=== PATIENT | male | born 1945 | race Caucasian/White ===

== ENCOUNTER 2019-08-15 19:47 | Inpatient (IN) ==
[2019-08-15] MEDS ORDERED: SODIUM CHLORIDE 0.9% 1,000 ML IV STA (20:14)
[2019-08-15 20:34] LABS: Basophils % 0.1 % (0.0-0.8); Eosinophils % 0.4 % (0.00-10.9); Hematocrit 32.2 VOL% (42.0-52.0); Immature Granulocytes % 0.5 %; Immature Granulocytes Absolute 0.04 #; Lymphocytes # 0.4 10*3/uL (1.4-4.0); Lymphocytes % 5.4 % (21.2-54.2); Mean Corpuscular HGB Conc 34.2 GM/DL (32-36); Mean Corpuscular Volume 94.2 FL (87-102); Mean Platelet Volume 9.6 FL (9.6-12.0); Monocytes % 5.5 % (1.7-12.7); Neutrophils % 88.1 % (38.7-73.9); Platelet Count 127 T/CUMM (130-400); Red Blood Count 3.42 MC/CUMM (3.8-5.5); Red Cell Distribution Width 13.3 % (9.3-17.3); White Blood Count 7.7 T/CUMM (4-12)
[2019-08-15] MEDS ORDERED: CLINDAMYCIN INJ 600 MG in PREMIX 1 EACH IV STA (21:03)
[2019-08-15 21:13] LABS: Albumin 3.6 G/DL (3.4-5.0); Bilirubin,Total 0.6 MG/DL (0.2-1.0); Calcium 8.4 MG/DL (8.5-10.1); Osmolality,Calculated 267.4 MOS/KG (273-304); Total Protein 6.8 G/DL (6.4-8.3)
[2019-08-15] MEDS ORDERED: ACETAMINOPHEN 500 MG TABLET ONE (22:15)
[2019-08-15 22:23] LABS: Apearance,Urine CLEAR (Clear); Bilirubin,Urine Negative (Negative); Blood, Urine Small mg/dL (Negative); Glucose,Urine (UA) Negative (Negative); Ketones,Urine Negative (Negative); Nitrite,Urine Negative (Negative); Protein,Urine Negative; RBC,Urine 3 /HPF (0-4); Urine Color Yellow (Yellow); Urine Specific Gravity 1.018 (1.001-1.035); Urine Urobilinogen < 2.0 EU/DL (0.2-1.0)
[2019-08-15 22:47] LABS: ABG Base Excess -0.2 MMOL/L (-2.5-2.5); ABG HCO3 24.2 MMOL/L (20-26); ABG PCO2 36.9 MM HG (35-48); ABG PO2 60.7 MM HG (80-95); ABG TCO2 21.3 MMOL/L (23-27); Allen Test Positive; Pt O2 Delivery Device Room Air
[2019-08-16] MEDS ORDERED: SODIUM CHLORIDE 0.9% 1,000 ML IV STA (00:11)
[2019-08-16] MEDS ORDERED: ALBUTEROL/IPRATROPIUM 3 ML NEB RESP TX PRN (00:29)
[2019-08-16] MEDS ORDERED: ACETAMINOPHEN 650 MG SUPP RECTAL PRN (00:29)
[2019-08-16] MEDS: PIPERACILLIN/TAZOBACTAM 3,375 MG in SODIUM CHLORIDE 0.9% 100 ML IV SCH ×3 (03:06→18:02)
[2019-08-16] MEDS ORDERED: ONDANSETRON 4 MG/2 ML VIAL IV PRN (03:24)
[2019-08-16 05:14] LABS: Basophils % 0.2 % (0.0-0.8); Eosinophils % 0.1 % (0.00-10.9); Hematocrit 28.8 VOL% (42.0-52.0); Hemoglobin 9.9 GM/DL (14.0-18.0); Immature Granulocytes % 1.5 %; Lymphocytes # 1.2 10*3/uL (1.4-4.0); Lymphocytes % 8.7 % (21.2-54.2); Mean Corpuscular HGB Conc 34.4 GM/DL (32-36); Mean Corpuscular Volume 93.2 FL (87-102); Mean Platelet Volume 10.5 FL (9.6-12.0); Monocytes % 5.9 % (1.7-12.7); Neutrophils % 83.6 % (38.7-73.9); Platelet Count 139 T/CUMM (130-400); Red Blood Count 3.09 MC/CUMM (3.8-5.5); Red Cell Distribution Width 13.8 % (9.3-17.3); White Blood Count 13.3 T/CUMM (4-12)
[2019-08-16 05:32] LABS: Apearance,Urine CLEAR (Clear); Bilirubin,Urine Negative (Negative); Blood, Urine Small mg/dL (Negative); Glucose,Urine (UA) Negative (Negative); Ketones,Urine Negative (Negative); Nitrite,Urine Negative (Negative); Protein,Urine Negative; RBC,Urine 6 /HPF (0-4); Urine Color Yellow (Yellow); Urine Specific Gravity 1.046 (1.001-1.035); Urine Urobilinogen < 2.0 EU/DL (0.2-1.0); WBC,Urine 2 /HPF (0-6)
[2019-08-16 05:44] LABS: Osmolality,Calculated 267.4 MOS/KG (273-304); Total Protein 6.4 G/DL (6.4-8.3)
[2019-08-16] MEDS: SODIUM CHLORIDE 0.9% 1,000 ML IV SCH ×2 (06:09→18:03)
[2019-08-16] MEDS: VANCOMYCIN INJ 1,250 MG in SODIUM CHLORIDE 0.9% 250 ML IV SCH ×2 (08:53→21:53)
[2019-08-16] MEDS: ACETAMINOPHEN 325 MG TABLET PO PRN (23:14)
[2019-08-17] MEDS: SODIUM CHLORIDE 0.9% 1,000 ML IV SCH ×2 (00:40→23:30)
[2019-08-17] MEDS: PIPERACILLIN/TAZOBACTAM 3,375 MG in SODIUM CHLORIDE 0.9% 100 ML IV SCH ×3 (03:39→18:04)
[2019-08-17 07:11] LABS: Calcium 8.4 MG/DL (8.5-10.1)
[2019-08-17] MEDS: VANCOMYCIN INJ 1,250 MG in SODIUM CHLORIDE 0.9% 250 ML IV SCH ×3 (09:40→23:16)
[2019-08-17] MEDS: ACETAMINOPHEN 325 MG TABLET PO PRN (21:58)
[2019-08-18] MEDS: PIPERACILLIN/TAZOBACTAM 3,375 MG in SODIUM CHLORIDE 0.9% 100 ML IV SCH ×3 (03:42→20:39)
[2019-08-18] MEDS: SODIUM CHLORIDE 0.9% 1,000 ML IV SCH ×2 (07:55→15:44)
[2019-08-18] MEDS: VANCOMYCIN INJ 1,250 MG in SODIUM CHLORIDE 0.9% 250 ML IV SCH ×2 (09:47→21:47)
[2019-08-18] MEDS: ACETAMINOPHEN 325 MG TABLET PO PRN (15:41)
[2019-08-19] MEDS: SODIUM CHLORIDE 0.9% 1,000 ML IV SCH ×2 (00:11→05:17)
[2019-08-19] MEDS: NYSTATIN 500,000 UNIT/5 ML UDCUP SWISH/SWAL SCH ×4 (00:58→16:17)
[2019-08-19] MEDS: PIPERACILLIN/TAZOBACTAM 3,375 MG in SODIUM CHLORIDE 0.9% 100 ML IV SCH (03:03)
[2019-08-19] MEDS: VANCOMYCIN INJ 1,250 MG in SODIUM CHLORIDE 0.9% 250 ML IV SCH (09:04)
[2019-08-19] MEDS: cephALEXin 500 MG CAPSULE PO SCH ×2 (12:58→16:17)
[2019-08-19 15:38] VITALS: BP 152/82
[2019-08-19] MEDS: ACETAMINOPHEN 325 MG TABLET PO PRN (16:16)
== END 2019-08-19 19:16 | disposition home or self-care (01) | DRG 871 ==
LOC: N.ED 19:47 → SUPCPDRO 08-16 00:14 → N.EDINP 08-16 00:14 → N.2E 08-16 03:30
PROVIDERS: ADMIT Internal Medicine; ATTEND Internal Medicine

== ENCOUNTER 2019-10-28 19:47 | Inpatient (IN) ==
[2019-10-28] MEDS ORDERED: HYDROmorphone 2 MG/1 ML VIAL IV STA (20:19)
[2019-10-28] MEDS ORDERED: SODIUM CHLORIDE 0.9% 1,000 ML IV STA (20:19)
[2019-10-28] MEDS ORDERED: PIPERACILLIN/TAZOBACTAM 3,375 MG in SODIUM CHLORIDE 0.9% 100 ML IV STA (20:19)
[2019-10-28] MEDS ORDERED: ONDANSETRON 4 MG/2 ML VIAL IV STA (20:19)
[2019-10-28 20:25] LABS: Basophils % 0.1 % (0.0-0.8); Hematocrit 31.5 VOL% (42.0-52.0); Hemoglobin 10.4 GM/DL (14.0-18.0); Immature Granulocytes % 0.8 %; Immature Granulocytes Absolute 0.07 #; Lymphocytes # 0.9 10*3/uL (1.4-4.0); Lymphocytes % 10.1 % (21.2-54.2); Mean Corpuscular Volume 95.2 FL (87-102); Mean Platelet Volume 9.9 FL (9.6-12.0); Monocytes % 4.5 % (1.7-12.7); Neutrophils % 84.5 % (38.7-73.9); Platelet Count 139 T/CUMM (130-400); Red Blood Count 3.31 MC/CUMM (3.8-5.5); Red Cell Distribution Width 13.5 % (9.3-17.3); White Blood Count 8.7 T/CUMM (4-12)
[2019-10-28 20:38] LABS: Albumin 2.9 G/DL (3.4-5.0); Calcium 8.4 MG/DL (8.5-10.1); Osmolality,Calculated 270.5 MOS/KG (273-304); Total Protein 6.6 G/DL (6.4-8.3)
[2019-10-28 21:43] LABS: Apearance,Urine Slightly Hazy (Clear); Bilirubin,Urine Negative (Negative); Blood, Urine Large mg/dL (Negative); Glucose,Urine (UA) Negative (Negative); Hyaline Casts,Urine 6 /LPF (0-3); Ketones,Urine Negative (Negative); Mucus,Urine Few /LPF (Occasional); Nitrite,Urine Negative (Negative); Protein,Urine 30 MG/DL; RBC,Urine 6 /HPF (0-4); Urine Color Amber (Yellow); Urine Specific Gravity 1.027 (1.001-1.035); Urine Urobilinogen < 2.0 EU/DL (0.2-1.0); WBC,Urine 3 /HPF (0-6)
[2019-10-28] MEDS ORDERED: NICOTINE 21 MG/24 HR PATCH TRANSDERM PRN (22:43)
[2019-10-28] MEDS ORDERED: DOCUSATE SODIUM 100 MG CAPSULE PO PRN (22:43)
[2019-10-28] MEDS ORDERED: guaiFENesin/DM ER 600-30 MG TABLET PO PRN (22:43)
[2019-10-28] MEDS ORDERED: ALBUTEROL 2.5 MG/3 ML NEB RESP TX PRN (22:43)
[2019-10-28] MEDS ORDERED: hydrALAZINE 20 MG/1 ML VIAL IV PRN (22:43)
[2019-10-28] MEDS ORDERED: ACETAMINOPHEN 325 MG TABLET PO PRN (22:43)
[2019-10-29] MEDS: metroNIDAZOLE INJ 500 MG in PREMIX 1 EACH IV SCH ×3 (00:34→16:04)
[2019-10-29] MEDS: DEXTROSE 5% NACL 0.9% 1,000 ML IV SCH ×2 (00:34→13:05)
[2019-10-29] MEDS: MORPHINE 4 MG/1 ML VIAL IV PRN (00:34)
[2019-10-29] MEDS: cefTRIAXone 1,000 MG in SYRINGE 1 EACH IV SCH ×2 (00:35→23:17)
[2019-10-29 04:54] LABS: Basophils % 0.1 % (0.0-0.8); Hematocrit 26.1 VOL% (42.0-52.0); Hemoglobin 8.8 GM/DL (14.0-18.0); Immature Granulocytes % 0.9 %; Immature Granulocytes Absolute 0.07 #; Lymphocytes # 1.2 10*3/uL (1.4-4.0); Lymphocytes % 16.2 % (21.2-54.2); Mean Corpuscular HGB Conc 33.7 GM/DL (32-36); Mean Corpuscular Volume 93.9 FL (87-102); Mean Platelet Volume 10.5 FL (9.6-12.0); Neutrophils % 77.8 % (38.7-73.9); Platelet Count 120 T/CUMM (130-400); Red Blood Count 2.78 MC/CUMM (3.8-5.5); Red Cell Distribution Width 13.8 % (9.3-17.3); White Blood Count 7.7 T/CUMM (4-12)
[2019-10-29 05:15] LABS: Albumin 2.4 G/DL (3.4-5.0); Osmolality,Calculated 272.4 MOS/KG (273-304); Total Protein 5.9 G/DL (6.4-8.3)
[2019-10-29] MEDS: PANTOPRAZOLE 40 MG TABLET PO SCH (09:24)
[2019-10-29] MEDS: TAMSULOSIN 0.4 MG CAPSULE PO SCH (12:09)
[2019-10-29] MEDS: ZALEPLON 5 MG CAPSULE PO PRN (23:17)
[2019-10-29] MEDS: ONDANSETRON 4 MG/2 ML VIAL IV PRN (23:23)
[2019-10-30] MEDS: DEXTROSE 5% NACL 0.9% 1,000 ML IV SCH ×2 (02:38→21:40)
[2019-10-30] MEDS: metroNIDAZOLE INJ 500 MG in PREMIX 1 EACH IV SCH ×4 (02:39→23:54)
[2019-10-30 05:03] LABS: Basophils % 0.3 % (0.0-0.8); Eosinophils # 0.1 10*3/uL (0.0-0.87); Eosinophils % 1.6 % (0.00-10.9); Hematocrit 23.9 VOL% (42.0-52.0); Hemoglobin 7.8 GM/DL (14.0-18.0); Immature Granulocytes % 0.5 %; Immature Granulocytes Absolute 0.02 #; Lymphocytes # 0.9 10*3/uL (1.4-4.0); Lymphocytes % 24.8 % (21.2-54.2); Mean Corpuscular HGB Conc 32.6 GM/DL (32-36); Mean Corpuscular Volume 97.2 FL (87-102); Mean Platelet Volume 10.2 FL (9.6-12.0); Neutrophils % 63.8 % (38.7-73.9); Platelet Count 104 T/CUMM (130-400); Red Blood Count 2.46 MC/CUMM (3.8-5.5); Red Cell Distribution Width 13.7 % (9.3-17.3); White Blood Count 3.8 T/CUMM (4-12)
[2019-10-30 05:30] LABS: Calcium 8.1 MG/DL (8.5-10.1); Osmolality,Calculated 272.5 MOS/KG (273-304)
[2019-10-30] MEDS: LEVOTHYROXINE 50 MCG TABLET PO SCH (05:56)
[2019-10-30] MEDS: PANTOPRAZOLE 40 MG TABLET PO SCH (08:39)
[2019-10-30] MEDS: TAMSULOSIN 0.4 MG CAPSULE PO SCH (08:41)
[2019-10-30] MEDS: POTASSIUM CHLORIDE 20 MEQ TABLET PO PRN ×3 (09:04→19:26)
[2019-10-30] MEDS ORDERED: SODIUM CHLORIDE 0.9% 1,000 ML IV PRN (11:51)
[2019-10-30] MEDS: ONDANSETRON 4 MG/2 ML VIAL IV PRN ×2 (13:05→21:36)
[2019-10-30] MEDS ORDERED: LORazepam 2 MG/1 ML VIAL IV ONE (14:01)
[2019-10-30] MEDS: ZALEPLON 5 MG CAPSULE PO PRN (21:31)
[2019-10-30] MEDS: MORPHINE 4 MG/1 ML VIAL IV PRN (21:32)
[2019-10-30 23:38] LABS: Hematocrit 27.3 VOL% (42.0-52.0); Hemoglobin 9.3 GM/DL (14.0-18.0)
[2019-10-30] MEDS: cefTRIAXone 1,000 MG in SYRINGE 1 EACH IV SCH (23:50)
[2019-10-31] MEDS: DEXTROSE 5% NACL 0.9% 1,000 ML IV SCH ×2 (04:06→13:53)
[2019-10-31] MEDS: LEVOTHYROXINE 50 MCG TABLET PO SCH (06:05)
[2019-10-31 08:34] LABS: Basophils % 0.3 % (0.0-0.8); Eosinophils # 0.2 10*3/uL (0.0-0.87); Eosinophils % 4.6 % (0.00-10.9); Hemoglobin 10.4 GM/DL (14.0-18.0); Immature Granulocytes % 0.9 %; Immature Granulocytes Absolute 0.03 #; Lymphocytes # 1.1 10*3/uL (1.4-4.0); Lymphocytes % 34.6 % (21.2-54.2); Mean Corpuscular HGB Conc 32.5 GM/DL (32-36); Mean Corpuscular Volume 95.5 FL (87-102); Monocytes % 9.5 % (1.7-12.7); Neutrophils % 50.1 % (38.7-73.9); Platelet Count 102 T/CUMM (130-400); Red Blood Count 3.35 MC/CUMM (3.8-5.5); Red Cell Distribution Width 14.1 % (9.3-17.3); White Blood Count 3.3 T/CUMM (4-12)
[2019-10-31 08:50] LABS: Calcium 8.4 MG/DL (8.5-10.1); Osmolality,Calculated 272.1 MOS/KG (273-304)
[2019-10-31] MEDS: TAMSULOSIN 0.4 MG CAPSULE PO SCH (09:03)
[2019-10-31] MEDS: metroNIDAZOLE INJ 500 MG in PREMIX 1 EACH IV SCH (09:03)
[2019-10-31] MEDS: PANTOPRAZOLE 40 MG TABLET PO SCH (09:03)
[2019-10-31] MEDS: metroNIDAZOLE 500 MG TABLET PO SCH ×2 (14:25→22:01)
[2019-10-31] MEDS: ZALEPLON 5 MG CAPSULE PO PRN (22:01)
[2019-11-01] MEDS: DEXTROSE 5% NACL 0.9% 1,000 ML IV SCH ×2 (02:38→15:04)
[2019-11-01] MEDS: metroNIDAZOLE 500 MG TABLET PO SCH ×3 (06:17→23:20)
[2019-11-01] MEDS: LEVOTHYROXINE 50 MCG TABLET PO SCH (06:17)
[2019-11-01 06:28] LABS: Basophils % 0.3 % (0.0-0.8); Eosinophils # 0.2 10*3/uL (0.0-0.87); Eosinophils % 6.9 % (0.00-10.9); Hematocrit 30.3 VOL% (42.0-52.0); Hemoglobin 10.2 GM/DL (14.0-18.0); Immature Granulocytes % 0.3 %; Immature Granulocytes Absolute 0.01 #; Lymphocytes # 1.6 10*3/uL (1.4-4.0); Lymphocytes % 46.9 % (21.2-54.2); Mean Corpuscular HGB Conc 33.7 GM/DL (32-36); Mean Corpuscular Volume 94.1 FL (87-102); Monocytes % 8.9 % (1.7-12.7); Neutrophils % 36.7 % (38.7-73.9); Platelet Count 113 T/CUMM (130-400); Red Blood Count 3.22 MC/CUMM (3.8-5.5); Red Cell Distribution Width 14.2 % (9.3-17.3); White Blood Count 3.5 T/CUMM (4-12)
[2019-11-01 06:54] LABS: Calcium 8.3 MG/DL (8.5-10.1); Osmolality,Calculated 272.8 MOS/KG (273-304)
[2019-11-01 06:56] LABS: Eosinophils 10 % (0-10); Hypochromasia 1+; Lymphocytes 44 % (20-55); Ovalocytes Slight; Platelet Estimate Decreased; Segmented Neutrophils 40 % (50-85); Total Cells Counted 100
[2019-11-01] MEDS: LACTATED RINGERS 1,000 ML IV SCH (07:19)
[2019-11-01] MEDS ORDERED: propofoL 200 MG/20 ML VIAL IV ONE (08:00)
[2019-11-01] MEDS ORDERED: LIDOCAINE 2% 5 ML VIAL ONE (08:00)
[2019-11-01] MEDS: CIPROFLOXACIN 500 MG TABLET PO SCH ×2 (09:18→20:17)
[2019-11-01] MEDS: TAMSULOSIN 0.4 MG CAPSULE PO SCH (09:18)
[2019-11-01] MEDS: BISACODYL 5 MG TABLET PO SCH ×3 (09:18→23:20)
[2019-11-01] MEDS: PANTOPRAZOLE 40 MG TABLET PO SCH (09:18)
[2019-11-01] MEDS: ONDANSETRON 4 MG/2 ML VIAL IV PRN (15:04)
[2019-11-01] MEDS ORDERED: POLYETHYLENE GLYCOL POWDER 255 GM BOTTLE PO ONE (18:00)
[2019-11-01] MEDS ORDERED: MAGNESIUM CITRATE 300 ML BOTTLE PO ONE (21:00)
[2019-11-02 05:27] LABS: Basophils % 0.2 % (0.0-0.8); Eosinophils # 0.2 10*3/uL (0.0-0.87); Eosinophils % 5.2 % (0.00-10.9); Hematocrit 30.6 VOL% (42.0-52.0); Hemoglobin 9.9 GM/DL (14.0-18.0); Immature Granulocytes % 0.5 %; Immature Granulocytes Absolute 0.02 #; Lymphocytes # 1.6 10*3/uL (1.4-4.0); Lymphocytes % 38.7 % (21.2-54.2); Mean Corpuscular HGB Conc 32.4 GM/DL (32-36); Mean Corpuscular Volume 95.6 FL (87-102); Mean Platelet Volume 10.3 FL (9.6-12.0); Monocytes % 10.7 % (1.7-12.7); Neutrophils % 44.7 % (38.7-73.9); Platelet Count 136 T/CUMM (130-400); Red Cell Distribution Width 14.1 % (9.3-17.3)
[2019-11-02 05:29] LABS: Calcium 8.6 MG/DL (8.5-10.1); Osmolality,Calculated 270.8 MOS/KG (273-304)
[2019-11-02] MEDS: LEVOTHYROXINE 50 MCG TABLET PO SCH (06:28)
[2019-11-02] MEDS: metroNIDAZOLE 500 MG TABLET PO SCH ×3 (06:28→21:45)
[2019-11-02] MEDS: ONDANSETRON 4 MG/2 ML VIAL IV PRN (06:35)
[2019-11-02] MEDS: LACTATED RINGERS 1,000 ML IV SCH (07:50)
[2019-11-02] MEDS ORDERED: propofoL 200 MG/20 ML VIAL IV ONE (09:00)
[2019-11-02] MEDS ORDERED: LIDOCAINE 2% 5 ML VIAL ONE (09:00)
[2019-11-02] MEDS: PANTOPRAZOLE 40 MG TABLET PO SCH (09:57)
[2019-11-02] MEDS: TAMSULOSIN 0.4 MG CAPSULE PO SCH (09:57)
[2019-11-02] MEDS: CIPROFLOXACIN 500 MG TABLET PO SCH ×2 (09:57→21:45)
[2019-11-02] MEDS: DEXTROSE 5% NACL 0.9% 1,000 ML IV SCH ×2 (12:13→15:59)
[2019-11-03] MEDS: DEXTROSE 5% NACL 0.9% 1,000 ML IV SCH ×2 (01:36→07:12)
[2019-11-03] MEDS: LEVOTHYROXINE 50 MCG TABLET PO SCH (05:44)
[2019-11-03] MEDS: metroNIDAZOLE 500 MG TABLET PO SCH (05:44)
[2019-11-03 06:20] LABS: Eosinophils # 0.1 10*3/uL (0.0-0.87); Eosinophils % 3.6 % (0.00-10.9); Hematocrit 29.2 VOL% (42.0-52.0); Hemoglobin 9.6 GM/DL (14.0-18.0); Immature Granulocytes % 0.4 %; Immature Granulocytes Absolute 0.01 #; Lymphocytes # 1.3 10*3/uL (1.4-4.0); Lymphocytes % 46.7 % (21.2-54.2); Mean Corpuscular HGB Conc 32.9 GM/DL (32-36); Mean Corpuscular Volume 94.5 FL (87-102); Monocytes % 10.2 % (1.7-12.7); Neutrophils % 39.1 % (38.7-73.9); Platelet Count 128 T/CUMM (130-400); Red Blood Count 3.09 MC/CUMM (3.8-5.5); Red Cell Distribution Width 14.1 % (9.3-17.3); White Blood Count 2.7 T/CUMM (4-12)
[2019-11-03 06:40] LABS: Platelet Estimate Normal
[2019-11-03 06:41] LABS: Hypochromasia 1+
[2019-11-03] MEDS: LACTATED RINGERS 1,000 ML IV SCH (07:12)
[2019-11-03] MEDS: TAMSULOSIN 0.4 MG CAPSULE PO SCH (08:00)
[2019-11-03] MEDS: POTASSIUM CHLORIDE 20 MEQ TABLET PO PRN (08:00)
[2019-11-03] MEDS: PANTOPRAZOLE 40 MG TABLET PO SCH (08:00)
[2019-11-03] MEDS: CIPROFLOXACIN 500 MG TABLET PO SCH (08:00)
[2019-11-03 08:53] VITALS: BP 108/78
== END 2019-11-03 13:21 | disposition home health service (06) | DRG 602 ==
LOC: EDUNIT# → EDBD → N.ED 19:47 → SUATTDRO 22:43 → N.EDINP 22:43 → N.5E 23:34
PROVIDERS: ADMIT Internal Medicine; ATTEND Internal Medicine

== ENCOUNTER 2020-01-03 22:18 | Inpatient (IN) ==
[2020-01-03] MEDS ORDERED: ACETAMINOPHEN 500 MG TABLET PO STA (22:43)
[2020-01-03 23:51] LABS: Basophils % 0.2 % (0.0-0.8); Eosinophils # 0.2 10*3/uL (0.0-0.87); Eosinophils % 2.4 % (0.00-10.9); Hematocrit 31.6 VOL% (42.0-52.0); Hemoglobin 10.5 GM/DL (14.0-18.0); Immature Granulocytes % 0.3 %; Immature Granulocytes Absolute 0.02 #; Lymphocytes # 0.8 10*3/uL (1.4-4.0); Lymphocytes % 12.2 % (21.2-54.2); Mean Corpuscular HGB Conc 33.2 GM/DL (32-36); Mean Corpuscular Volume 94.3 FL (87-102); Mean Platelet Volume 9.7 FL (9.6-12.0); Monocytes % 6.7 % (1.7-12.7); Neutrophils % 78.2 % (38.7-73.9); Platelet Count 137 T/CUMM (130-400); Red Blood Count 3.35 MC/CUMM (3.8-5.5); Red Cell Distribution Width 14.1 % (9.3-17.3); White Blood Count 6.3 T/CUMM (4-12)
[2020-01-03 23:53] LABS: Apearance,Urine CLEAR (Clear); Bilirubin,Urine Negative (Negative); Blood, Urine Negative (Negative); Glucose,Urine (UA) Negative (Negative); Ketones,Urine Negative (Negative); Mucus,Urine Occasional /LPF (Occasional); Nitrite,Urine Negative (Negative); Protein,Urine Negative; RBC,Urine 7 /HPF (0-4); Urine Color Yellow (Yellow); Urine Specific Gravity 1.012 (1.001-1.035); Urine Urobilinogen < 2.0 EU/DL (0.2-1.0); WBC,Urine <1 /HPF (0-6)
[2020-01-04] MEDS ORDERED: cefTRIAXone 1,000 MG in SODIUM CHLORIDE 0.9% 100 ML IV STA (00:05)
[2020-01-04] MEDS ORDERED: AZITHROMYCIN INJ 500 MG in SODIUM CHLORIDE 0.9% 250 ML IV STA (00:05)
[2020-01-04 00:11] LABS: Bilirubin,Total 0.5 MG/DL (0.2-1.0); Calcium 8.5 MG/DL (8.5-10.1); Osmolality,Calculated 262.7 MOS/KG (273-304); Total Protein 7.4 G/DL (6.4-8.3)
[2020-01-04] MEDS ORDERED: IBUPROFEN 100 MG/5 ML UDCUP PO STA (00:33)
[2020-01-04] MEDS ORDERED: IBUPROFEN 400 MG TABLET ONE (00:34)
[2020-01-04] MEDS ORDERED: ACETAMINOPHEN 325 MG TABLET PO PRN (02:45)
[2020-01-04] MEDS ORDERED: GLUCAGON 1 MG VIAL IM PRN (02:45)
[2020-01-04] MEDS ORDERED: ONDANSETRON 4 MG/2 ML VIAL IV PRN (02:45)
[2020-01-04] MEDS ORDERED: DEXTROSE 10% 250 ML BAG IV PRN (02:54)
[2020-01-04 05:35] LABS: Basophils % 0.1 % (0.0-0.8); Eosinophils # 0.1 10*3/uL (0.0-0.87); Hematocrit 27.2 VOL% (42.0-52.0); Hemoglobin 9.1 GM/DL (14.0-18.0); Immature Granulocytes % 0.3 %; Immature Granulocytes Absolute 0.02 #; Lymphocytes # 1.4 10*3/uL (1.4-4.0); Lymphocytes % 20.4 % (21.2-54.2); Mean Corpuscular HGB Conc 33.5 GM/DL (32-36); Mean Corpuscular Volume 94.8 FL (87-102); Mean Platelet Volume 9.3 FL (9.6-12.0); Monocytes % 6.9 % (1.7-12.7); Neutrophils % 70.3 % (38.7-73.9); Platelet Count 114 T/CUMM (130-400); Red Blood Count 2.87 MC/CUMM (3.8-5.5); Red Cell Distribution Width 14.2 % (9.3-17.3); White Blood Count 7.1 T/CUMM (4-12)
[2020-01-04] MEDS: AZITHROMYCIN 250 MG TABLET PO SCH (21:15)
[2020-01-04] MEDS: cefTRIAXone 1,000 MG in SYRINGE 1 EACH IV SCH (21:15)
[2020-01-05 06:06] LABS: Basophils % 0.3 % (0.0-0.8); Eosinophils # 0.3 10*3/uL (0.0-0.87); Hematocrit 27.4 VOL% (42.0-52.0); Hemoglobin 9.1 GM/DL (14.0-18.0); Immature Granulocytes % 0.5 %; Immature Granulocytes Absolute 0.03 #; Lymphocytes # 1.7 10*3/uL (1.4-4.0); Mean Corpuscular HGB Conc 33.2 GM/DL (32-36); Mean Corpuscular Volume 96.1 FL (87-102); Mean Platelet Volume 10.1 FL (9.6-12.0); Monocytes % 6.4 % (1.7-12.7); Neutrophils % 61.8 % (38.7-73.9); Platelet Count 131 T/CUMM (130-400); Red Blood Count 2.85 MC/CUMM (3.8-5.5); Red Cell Distribution Width 14.4 % (9.3-17.3); White Blood Count 6.2 T/CUMM (4-12)
[2020-01-05 06:38] LABS: Calcium 8.4 MG/DL (8.5-10.1)
[2020-01-05] MEDS: AZITHROMYCIN 250 MG TABLET PO SCH (20:38)
[2020-01-05] MEDS: cefTRIAXone 1,000 MG in SYRINGE 1 EACH IV SCH (20:38)
[2020-01-06] MEDS ORDERED: PANTOPRAZOLE 40 MG TABLET PO SCH (09:00)
[2020-01-06] MEDS ORDERED: TAMSULOSIN 0.4 MG CAPSULE PO SCH (09:00)
[2020-01-06] MEDS ORDERED: LEVOTHYROXINE 50 MCG TABLET PO SCH (09:00)
[2020-01-06 10:38] VITALS: BP 144/90
== END 2020-01-06 15:30 | DRG 948 ==
LOC: N.ED 22:18 → N.EDINP 01-04 02:45 → N.2E 01-04 14:16
PROVIDERS: ADMIT Internal Medicine; ATTEND Internal Medicine

== ENCOUNTER 2020-03-22 13:04 | Inpatient (IN) ==
[2020-03-22] MEDS ORDERED: SODIUM CHLORIDE 0.9% 1,000 ML IV STA (13:28)
[2020-03-22] MEDS ORDERED: MORPHINE 4 MG/1 ML VIAL IV STA (13:52)
[2020-03-22] MEDS ORDERED: ONDANSETRON 4 MG/2 ML VIAL IV STA (13:52)
[2020-03-22] MEDS ORDERED: DILTIAZEM 50 MG/10 ML VIAL IV STA (13:52)
[2020-03-22] MEDS ORDERED: ACETAMINOPHEN 500 MG TABLET ONE (13:57)
[2020-03-22 13:59] LABS: Basophils % 0.2 % (0.0-0.8); Eosinophils # 0.1 10*3/uL (0.0-0.87); Eosinophils % 0.6 % (0.00-10.9); Hematocrit 34.2 VOL% (42.0-52.0); Hemoglobin 11.6 GM/DL (14.0-18.0); Immature Granulocytes % 0.4 %; Immature Granulocytes Absolute 0.04 #; Lymphocytes # 0.9 10*3/uL (1.4-4.0); Lymphocytes % 9.4 % (21.2-54.2); Mean Corpuscular HGB Conc 33.9 GM/DL (32-36); Mean Corpuscular Volume 94.7 FL (87-102); Mean Platelet Volume 9.3 FL (9.6-12.0); Monocytes % 7.7 % (1.7-12.7); Neutrophils % 81.7 % (38.7-73.9); Platelet Count 147 T/CUMM (130-400); Red Blood Count 3.61 MC/CUMM (3.8-5.5); Red Cell Distribution Width 13.2 % (9.3-17.3); White Blood Count 9.5 T/CUMM (4-12)
[2020-03-22] MEDS ORDERED: dilTIAZem Drip 125 MG/125 ML PREMIX IV SCH (14:00)
[2020-03-22 14:23] LABS: Albumin 3.5 G/DL (3.4-5.0); Bilirubin,Total 0.6 MG/DL (0.2-1.0); Calcium 8.3 MG/DL (8.5-10.1); Osmolality,Calculated 275.8 MOS/KG (273-304); Total Protein 7.3 G/DL (6.4-8.3)
[2020-03-22] MEDS ORDERED: LEVOFLOXACIN INJ 500 MG in PREMIX 1 EACH IV STA (15:19)
[2020-03-22 15:43] LABS: Apearance,Urine CLEAR (Clear); Bacteria,Urine Occasional /HPF (Few); Bilirubin,Urine Negative (Negative); Blood, Urine Moderate mg/dL (Negative); Glucose,Urine (UA) Negative (Negative); Ketones,Urine Negative (Negative); Mucus,Urine Occasional /LPF (Occasional); Nitrite,Urine Negative (Negative); Protein,Urine Negative; RBC,Urine 23 /HPF (0-4); Urine Color Yellow (Yellow); Urine Specific Gravity 1.034 (1.001-1.035); Urine Urobilinogen < 2.0 EU/DL (0.2-1.0); WBC,Urine 1 /HPF (0-6)
[2020-03-22] MEDS ORDERED: DEXTROSE 50% 25 GM/50 ML VIAL IV PRN (17:00)
[2020-03-22] MEDS ORDERED: ONDANSETRON 4 MG/2 ML VIAL IV PRN (17:00)
[2020-03-22] MEDS ORDERED: GLUCAGON 1 MG VIAL IM PRN (17:00)
[2020-03-22] MEDS ORDERED: ACETAMINOPHEN 325 MG TABLET PO PRN (17:00)
[2020-03-22 19:02] LABS: Ferritin 101.1 ng/ml (26-388); Thyroid Stimulating Hormone 0.589 uIU/ml (0.358-3.74)
[2020-03-22] MEDS ORDERED: ENOXAPARIN 40 MG/0.4 ML SYRINGE SUBCUT SCH (21:00)
[2020-03-22] MEDS: guaiFENesin/DM ER 600-30 MG TABLET PO SCH (21:45)
[2020-03-22] MEDS ORDERED: ENOXAPARIN 60 MG/0.6 ML SYRINGE SUBCUT ONE (23:00)
[2020-03-23] MEDS ORDERED: PANTOPRAZOLE 40 MG TABLET PO SCH (09:00)
[2020-03-23] MEDS: ENOXAPARIN 100 MG/ML SYRINGE SUBCUT SCH ×2 (10:28→22:00)
[2020-03-23] MEDS: guaiFENesin/DM ER 600-30 MG TABLET PO SCH ×2 (10:28→22:00)
[2020-03-23] MEDS: TAMSULOSIN 0.4 MG CAPSULE PO SCH (10:28)
[2020-03-23 10:41] LABS: Basophils % 0.2 % (0.0-0.8); Eosinophils # 0.1 10*3/uL (0.0-0.87); Eosinophils % 0.6 % (0.00-10.9); Hemoglobin 9.4 GM/DL (14.0-18.0); Immature Granulocytes % 0.9 %; Lymphocytes % 17.7 % (21.2-54.2); Mean Corpuscular HGB Conc 33.6 GM/DL (32-36); Mean Corpuscular Volume 95.6 FL (87-102); Mean Platelet Volume 9.8 FL (9.6-12.0); Neutrophils % 75.6 % (38.7-73.9); Platelet Count 139 T/CUMM (130-400); Red Blood Count 2.93 MC/CUMM (3.8-5.5); Red Cell Distribution Width 13.5 % (9.3-17.3); White Blood Count 11.2 T/CUMM (4-12)
[2020-03-23 11:00] LABS: Albumin 2.9 G/DL (3.4-5.0); Bilirubin,Total 1.2 MG/DL (0.2-1.0); Calcium 8.1 MG/DL (8.5-10.1); Osmolality,Calculated 273.2 MOS/KG (273-304); Total Protein 6.7 G/DL (6.4-8.3)
[2020-03-23 11:02] LABS: Anisocytosis 1+; Platelet Estimate Adequate
[2020-03-23 11:03] LABS: Macrocytosis 1+
[2020-03-23] MEDS: LEVOFLOXACIN INJ 750 MG in PREMIX 1 EACH IV SCH (17:57)
[2020-03-24] MEDS: guaiFENesin/DM ER 600-30 MG TABLET PO SCH ×2 (09:22→20:17)
[2020-03-24] MEDS: TAMSULOSIN 0.4 MG CAPSULE PO SCH (09:22)
[2020-03-24] MEDS: ENOXAPARIN 100 MG/ML SYRINGE SUBCUT SCH ×2 (10:23→20:17)
[2020-03-24 11:19] LABS: Basophils % 0.2 % (0.0-0.8); Eosinophils # 0.1 10*3/uL (0.0-0.87); Eosinophils % 1.5 % (0.00-10.9); Hematocrit 27.7 VOL% (42.0-52.0); Hemoglobin 9.2 GM/DL (14.0-18.0); Immature Granulocytes % 0.5 %; Immature Granulocytes Absolute 0.03 #; Lymphocytes # 1.3 10*3/uL (1.4-4.0); Lymphocytes % 21.5 % (21.2-54.2); Mean Corpuscular HGB Conc 33.2 GM/DL (32-36); Mean Corpuscular Volume 95.8 FL (87-102); Mean Platelet Volume 9.6 FL (9.6-12.0); Monocytes % 4.7 % (1.7-12.7); Neutrophils % 71.6 % (38.7-73.9); Platelet Count 113 T/CUMM (130-400); Red Blood Count 2.89 MC/CUMM (3.8-5.5); Red Cell Distribution Width 13.4 % (9.3-17.3); White Blood Count 5.9 T/CUMM (4-12)
[2020-03-24 11:35] LABS: Alanine Aminotransferase 14 U/L (16-61); Albumin 2.9 G/DL (3.4-5.0); Alkaline Phosphatase 77 U/L (45-117); Aspartate Amino Transferase 17 U/L (0-37); Bilirubin,Total < 0.39 MG/DL (0.2-1.0); Blood Urea Nitrogen 29 MG/DL (7-18); Calcium 8.6 MG/DL (8.5-10.1); Estimated Glom Filtration Rate 54 ML/MIN; Glucose 113 MG/DL (74-106); Osmolality,Calculated 276.1 MOS/KG (273-304); Total Protein 7.2 G/DL (6.4-8.3)
[2020-03-24] MEDS: ALBUTEROL INHALER 18 GM INH SCH ×2 (15:06→20:21)
[2020-03-24] MEDS: LEVOFLOXACIN INJ 750 MG in PREMIX 1 EACH IV SCH (16:16)
[2020-03-25] MEDS: ALBUTEROL INHALER 18 GM INH SCH ×2 (03:30→08:00)
[2020-03-25 05:43] LABS: Basophils % 0.2 % (0.0-0.8); Eosinophils # 0.2 10*3/uL (0.0-0.87); Hematocrit 30.1 VOL% (42.0-52.0); Hemoglobin 9.9 GM/DL (14.0-18.0); Immature Granulocytes % 0.2 %; Immature Granulocytes Absolute 0.01 #; Lymphocytes # 1.8 10*3/uL (1.4-4.0); Mean Corpuscular HGB Conc 32.9 GM/DL (32-36); Mean Corpuscular Volume 97.4 FL (87-102); Mean Platelet Volume 10.1 FL (9.6-12.0); Monocytes % 6.7 % (1.7-12.7); Neutrophils % 45.9 % (38.7-73.9); Platelet Count 138 T/CUMM (130-400); Red Blood Count 3.09 MC/CUMM (3.8-5.5); Red Cell Distribution Width 13.4 % (9.3-17.3); White Blood Count 4.2 T/CUMM (4-12)
[2020-03-25 06:05] LABS: Albumin 3.1 G/DL (3.4-5.0); Bilirubin,Total 0.6 MG/DL (0.2-1.0); Calcium 8.8 MG/DL (8.5-10.1); Osmolality,Calculated 276.8 MOS/KG (273-304); Total Protein 7.6 G/DL (6.4-8.3)
[2020-03-25] MEDS: TAMSULOSIN 0.4 MG CAPSULE PO SCH (08:00)
[2020-03-25] MEDS: guaiFENesin/DM ER 600-30 MG TABLET PO SCH (08:00)
[2020-03-25] MEDS: ENOXAPARIN 100 MG/ML SYRINGE SUBCUT SCH (08:00)
[2020-03-25 11:42] VITALS: BP 108/58
== END 2020-03-25 13:10 | disposition home or self-care (01) | DRG 193 ==
LOC: EDUNIT# → EDBD → N.ED 13:04 → SUATTDRO 15:58 → N.EDINP 15:58 → N.2E 17:30
PROVIDERS: ADMIT Internal Medicine; ATTEND Internal Medicine

== ENCOUNTER 2020-07-14 19:55 | Inpatient (IN) ==
[2020-07-14] MEDS ORDERED: SODIUM CHLORIDE 0.9% 500 ML IV STA (20:26)
[2020-07-14 20:37] LABS: Basophils % 0.4 % (0.0-0.8); Eosinophils # 0.6 10*3/uL (0.0-0.87); Eosinophils % 6.4 % (0.00-10.9); Hematocrit 32.5 VOL% (42.0-52.0); Hemoglobin 10.8 GM/DL (14.0-18.0); Immature Granulocytes % 0.4 %; Immature Granulocytes Absolute 0.04 #; Lymphocytes # 4.5 10*3/uL (1.4-4.0); Lymphocytes % 45.5 % (21.2-54.2); Mean Corpuscular HGB Conc 33.2 GM/DL (32-36); Mean Corpuscular Volume 98.2 FL (87-102); Mean Platelet Volume 9.6 FL (9.6-12.0); Monocytes % 1.7 % (1.7-12.7); Neutrophils % 45.6 % (38.7-73.9); Platelet Count 202 T/CUMM (130-400); Red Blood Count 3.31 MC/CUMM (3.8-5.5); Red Cell Distribution Width 12.8 % (9.3-17.3); White Blood Count 9.8 T/CUMM (4-12)
[2020-07-14 21:11] LABS: Alanine Aminotransferase 15 U/L (16-61); Albumin 3.2 G/DL (3.4-5.0); Alkaline Phosphatase 122 U/L (45-117); Aspartate Amino Transferase 16 U/L (0-37); Bilirubin,Total < 0.39 MG/DL (0.2-1.0); Blood Urea Nitrogen 19 MG/DL (7-18); Estimated Glom Filtration Rate 1554 ML/MIN; Glucose 193 MG/DL (74-106); Osmolality,Calculated 272.4 MOS/KG (273-304); Total Protein 7.8 G/DL (6.4-8.3)
[2020-07-14 21:48] LABS: Bacteria,Urine Occasional /HPF (Few); Bilirubin,Urine Negative (Negative); Blood, Urine Negative (Negative); Glucose,Urine (UA) Negative (Negative); Hyaline Casts,Urine 3 /LPF (0-3); Ketones,Urine Negative (Negative); Mucus,Urine Occasional /LPF (Occasional); Nitrite,Urine Negative (Negative); Protein,Urine 100 MG/DL; RBC,Urine 3 /HPF (0-4); Urine Appearance CLEAR (Clear); Urine Color Yellow (Yellow); Urine Specific Gravity 1.009 (1.001-1.035); Urine Urobilinogen < 2.0 EU/DL (0.2-1.0); WBC,Urine 1 /HPF (0-6)
[2020-07-14 22:13] LABS: ABG Base Excess 1.6 MMOL/L (-2.5-2.5); ABG HCO3 25.8 MMOL/L (20-26); ABG PCO2 54.5 MM HG (35-48); ABG PH 7.326 (7.35-7.45); ABG TCO2 26.1 MMOL/L (23-27); Allen Test Positive; Pt O2 Delivery Device Ventilator
[2020-07-14 22:48] LABS: Barbiturates Screen,Urine Negative (Negative); Benzodiazepines Screen,Urine Positive (Negative); Cannabinoid Screen,Urine Negative (Negative); Opiate Screen,Urine Negative (Negative); Phencyclidine Screen,Urine Negative (Negative)
[2020-07-14] MEDS ORDERED: ALBUTEROL 2.5 MG/3 ML NEB RESP TX PRN (23:22)
[2020-07-14] MEDS ORDERED: ONDANSETRON 4 MG/2 ML VIAL IV PRN (23:22)
[2020-07-14] MEDS ORDERED: cefTRIAXone 1,000 MG in SODIUM CHLORIDE 0.9% 100 ML IV STA (23:31)
[2020-07-14] MEDS ORDERED: DEXTROSE 50% 25 GM/50 ML VIAL IV PRN (23:32)
[2020-07-14] MEDS ORDERED: GLUCAGON 1 MG VIAL IM PRN (23:32)
[2020-07-14] MEDS ORDERED: LACTATED RINGERS 1,000 ML IV ONE (23:38)
[2020-07-15] MEDS ORDERED: DEXTROSE 50% 25 GM/50 ML SYRINGE IV PRN (00:17)
[2020-07-15] MEDS: INSULIN LISPRO 100 UNIT/ML SUBCUT SCH ×5 (01:23→23:16)
[2020-07-15] MEDS: ENOXAPARIN 40 MG/0.4 ML SYRINGE SUBCUT SCH ×2 (01:30→22:33)
[2020-07-15] MEDS: PANTOPRAZOLE 40 MG VIAL IV SCH ×2 (01:30→22:33)
[2020-07-15] MEDS: POTASSIUM CHLORIDE 20 MEQ/15 ML UDCUP PER TUBE SCH ×3 (02:04→09:42)
[2020-07-15] MEDS: LACTATED RINGERS 1,000 ML IV SCH ×3 (02:25→22:04)
[2020-07-15 04:22] LABS: ABG Base Excess 0.2 MMOL/L (-2.5-2.5); ABG HCO3 24.6 MMOL/L (20-26); ABG Oxygen Saturation 99.7 % (95-100); ABG PCO2 44.4 MM HG (35-48); ABG PH 7.371 (7.35-7.45); ABG TCO2 23.1 MMOL/L (23-27); Allen Test Positive; Pt O2 Delivery Device Ventilator
[2020-07-15 04:24] LABS: Basophils % 0.5 % (0.0-0.8); Eosinophils # 0.1 10*3/uL (0.0-0.87); Hematocrit 26.9 VOL% (42.0-52.0); Hemoglobin 9.3 GM/DL (14.0-18.0); Immature Granulocytes % 0.2 %; Immature Granulocytes Absolute 0.01 #; Lymphocytes # 0.9 10*3/uL (1.4-4.0); Lymphocytes % 20.3 % (21.2-54.2); Mean Corpuscular HGB Conc 34.6 GM/DL (32-36); Mean Corpuscular Volume 94.4 FL (87-102); Mean Platelet Volume 10.1 FL (9.6-12.0); Monocytes % 6.3 % (1.7-12.7); Neutrophils % 70.7 % (38.7-73.9); Platelet Count 151 T/CUMM (130-400); Red Blood Count 2.85 MC/CUMM (3.8-5.5); White Blood Count 4.4 T/CUMM (4-12)
[2020-07-15 04:40] LABS: Alanine Aminotransferase 13 U/L (16-61); Albumin 2.7 G/DL (3.4-5.0); Alkaline Phosphatase 95 U/L (45-117); Aspartate Amino Transferase 19 U/L (0-37); Bilirubin,Total < 0.39 MG/DL (0.2-1.0); Blood Urea Nitrogen 23 MG/DL (7-18); Calcium 8.4 MG/DL (8.5-10.1); Estimated Glom Filtration Rate 69 ML/MIN; Glucose 115 MG/DL (74-106); HDL Cholesterol 33 MG/DL (40-60); Osmolality,Calculated 274.1 MOS/KG (273-304); Risk Ratio 4.79; Thyroid Stimulating Hormone 0.905 uIU/ml (0.358-3.74); Total Protein 6.5 G/DL (6.4-8.3); Triglycerides 71 MG/DL (2-150); VLDL CHOLESTEROL 14.2 MG/DL
[2020-07-15] MEDS: LEVOTHYROXINE 50 MCG TABLET PO SCH (05:50)
[2020-07-15] MEDS ORDERED: CLOPIDOGREL 75 MG TABLET PO SCH (10:00)
[2020-07-15] MEDS: ASPIRIN CHEW 81 MG TABLET PO SCH (10:09)
[2020-07-15] MEDS: INSULIN GLARGINE 100 UNIT/ML SUBCUT SCH (11:48)
[2020-07-15] MEDS: MORPHINE 4 MG/1 ML VIAL IV PRN (23:18)
[2020-07-16 04:32] LABS: Basophils % 0.2 % (0.0-0.8); Eosinophils # 0.2 10*3/uL (0.0-0.87); Eosinophils % 3.7 % (0.00-10.9); Hemoglobin 8.6 GM/DL (14.0-18.0); Immature Granulocytes % 0.2 %; Immature Granulocytes Absolute 0.01 #; Lymphocytes # 1.2 10*3/uL (1.4-4.0); Mean Corpuscular HGB Conc 33.1 GM/DL (32-36); Mean Corpuscular Volume 98.1 FL (87-102); Monocytes % 7.2 % (1.7-12.7); Neutrophils % 59.7 % (38.7-73.9); Platelet Count 118 T/CUMM (130-400); Red Blood Count 2.65 MC/CUMM (3.8-5.5); Red Cell Distribution Width 13.2 % (9.3-17.3); White Blood Count 4.3 T/CUMM (4-12)
[2020-07-16 05:14] LABS: ABG HCO3 24.4 MMOL/L (20-26); ABG Oxygen Saturation 98.2 % (95-100); ABG PCO2 45.7 MM HG (35-48); ABG PH 7.358 (7.35-7.45); ABG TCO2 23.6 MMOL/L (23-27); Allen Test Positive; Pt O2 Delivery Device Ventilator
[2020-07-16] MEDS: LEVOTHYROXINE 50 MCG TABLET PO SCH (05:14)
[2020-07-16] MEDS: INSULIN LISPRO 100 UNIT/ML SUBCUT SCH ×3 (06:36→17:35)
[2020-07-16] MEDS: ASPIRIN CHEW 81 MG TABLET PO SCH (08:48)
[2020-07-16] MEDS: MULTIVITAMIN LIQUID (CENTRUM) 60 ML BOTTLE NG SCH (08:48)
[2020-07-16] MEDS: INSULIN GLARGINE 100 UNIT/ML SUBCUT SCH (08:49)
[2020-07-16] MEDS: LACTATED RINGERS 1,000 ML IV SCH (08:50)
[2020-07-16 09:49] LABS: Calcium 8.3 MG/DL (8.5-10.1); Osmolality,Calculated 270.4 MOS/KG (273-304)
[2020-07-16] MEDS ORDERED: LACTULOSE 20 GM/30 ML UDCUP PO ONE (10:52)
[2020-07-16] MEDS: SODIUM CHLORIDE 0.9% 1,000 ML IV SCH ×2 (11:23→23:28)
[2020-07-16] MEDS: ENOXAPARIN 40 MG/0.4 ML SYRINGE SUBCUT SCH (22:34)
[2020-07-16] MEDS: PANTOPRAZOLE 40 MG VIAL IV SCH (22:35)
[2020-07-16] MEDS: MORPHINE 4 MG/1 ML VIAL IV PRN (23:28)
[2020-07-17] MEDS: INSULIN LISPRO 100 UNIT/ML SUBCUT SCH ×4 (00:27→17:50)
[2020-07-17 04:28] LABS: ABG Base Excess 1.1 MMOL/L (-2.5-2.5); ABG HCO3 25.3 MMOL/L (20-26); ABG Oxygen Saturation 94.9 % (95-100); ABG PH 7.399 (7.35-7.45); ABG PO2 72.5 MM HG (80-95); ABG TCO2 23.9 MMOL/L (23-27); Allen Test Positive; Pt O2 Delivery Device Room Air
[2020-07-17 04:39] LABS: Basophils % 0.3 % (0.0-0.8); Eosinophils # 0.2 10*3/uL (0.0-0.87); Eosinophils % 4.5 % (0.00-10.9); Hematocrit 27.5 VOL% (42.0-52.0); Hemoglobin 9.4 GM/DL (14.0-18.0); Immature Granulocytes % 0.3 %; Immature Granulocytes Absolute 0.01 #; Lymphocytes # 1.2 10*3/uL (1.4-4.0); Lymphocytes % 30.6 % (21.2-54.2); Mean Corpuscular HGB Conc 34.2 GM/DL (32-36); Mean Corpuscular Volume 96.2 FL (87-102); Monocytes % 9.8 % (1.7-12.7); Neutrophils % 54.5 % (38.7-73.9); Platelet Count 134 T/CUMM (130-400); Red Blood Count 2.86 MC/CUMM (3.8-5.5); Red Cell Distribution Width 12.9 % (9.3-17.3)
[2020-07-17 05:00] LABS: Calcium 8.6 MG/DL (8.5-10.1); Osmolality,Calculated 283.4 MOS/KG (273-304)
[2020-07-17] MEDS: LEVOTHYROXINE 50 MCG TABLET PO SCH (05:29)
[2020-07-17] MEDS: ASPIRIN CHEW 81 MG TABLET PO SCH (09:30)
[2020-07-17] MEDS: INSULIN GLARGINE 100 UNIT/ML SUBCUT SCH (09:30)
[2020-07-17] MEDS: MULTIVITAMIN LIQUID (CENTRUM) 60 ML BOTTLE NG SCH (10:51)
[2020-07-17] MEDS: SODIUM CHLORIDE 0.9% 1,000 ML IV SCH (13:03)
[2020-07-17] MEDS: levETIRAcetam 500 MG TABLET PO SCH (20:14)
[2020-07-17] MEDS: MORPHINE 4 MG/1 ML VIAL IV PRN (22:16)
[2020-07-18] MEDS: ENOXAPARIN 40 MG/0.4 ML SYRINGE SUBCUT SCH ×2 (00:04→23:09)
[2020-07-18] MEDS: INSULIN LISPRO 100 UNIT/ML SUBCUT SCH ×4 (00:08→18:02)
[2020-07-18 05:36] LABS: Basophils % 0.3 % (0.0-0.8); Eosinophils # 0.3 10*3/uL (0.0-0.87); Eosinophils % 9.1 % (0.00-10.9); Hematocrit 24.5 VOL% (42.0-52.0); Hemoglobin 8.6 GM/DL (14.0-18.0); Immature Granulocytes % 0.3 %; Immature Granulocytes Absolute 0.01 #; Lymphocytes # 1.3 10*3/uL (1.4-4.0); Lymphocytes % 39.8 % (21.2-54.2); Mean Corpuscular HGB Conc 35.1 GM/DL (32-36); Mean Corpuscular Volume 94.2 FL (87-102); Mean Platelet Volume 9.8 FL (9.6-12.0); Monocytes % 9.7 % (1.7-12.7); Neutrophils % 40.8 % (38.7-73.9); Platelet Count 140 T/CUMM (130-400); Red Cell Distribution Width 12.6 % (9.3-17.3); White Blood Count 3.3 T/CUMM (4-12)
[2020-07-18 05:58] LABS: Hypochromasia 1+; Microcytosis 1+; Platelet Estimate Adequate
[2020-07-18] MEDS: SODIUM CHLORIDE 0.9% 1,000 ML IV SCH (06:04)
[2020-07-18] MEDS: LEVOTHYROXINE 50 MCG TABLET PO SCH (06:05)
[2020-07-18] MEDS: INSULIN GLARGINE 100 UNIT/ML SUBCUT SCH (08:27)
[2020-07-18] MEDS: ASPIRIN CHEW 81 MG TABLET PO SCH (08:27)
[2020-07-18] MEDS: levETIRAcetam 500 MG TABLET PO SCH ×2 (08:27→21:38)
[2020-07-18] MEDS: PANTOPRAZOLE 40 MG TABLET PO SCH (08:27)
[2020-07-18] MEDS: MULTIVITAMIN LIQUID (CENTRUM) 60 ML BOTTLE NG SCH (08:28)
[2020-07-18] MEDS: amLODIPine 5 MG TABLET PO SCH (13:04)
[2020-07-18] MEDS: POTASSIUM CHLORIDE 20 MEQ PACK PO SCH ×2 (18:02→22:13)
[2020-07-18] MEDS ORDERED: cloNIDine 0.1 MG TABLET PO PRN (18:36)
[2020-07-19] MEDS: INSULIN LISPRO 100 UNIT/ML SUBCUT SCH ×4 (00:53→17:36)
[2020-07-19] MEDS: LEVOTHYROXINE 50 MCG TABLET PO SCH (05:26)
[2020-07-19 05:33] LABS: Eosinophils # 0.4 10*3/uL (0.0-0.87); Eosinophils % 13.5 % (0.00-10.9); Hematocrit 23.4 VOL% (42.0-52.0); Hemoglobin 8.3 GM/DL (14.0-18.0); Immature Granulocytes % 0.3 %; Immature Granulocytes Absolute 0.01 #; Lymphocytes # 1.3 10*3/uL (1.4-4.0); Lymphocytes % 43.4 % (21.2-54.2); Mean Corpuscular HGB Conc 35.5 GM/DL (32-36); Mean Corpuscular Volume 93.2 FL (87-102); Mean Platelet Volume 9.7 FL (9.6-12.0); Monocytes % 10.4 % (1.7-12.7); Neutrophils % 32.4 % (38.7-73.9); Platelet Count 135 T/CUMM (130-400); Red Blood Count 2.51 MC/CUMM (3.8-5.5); Red Cell Distribution Width 12.3 % (9.3-17.3)
[2020-07-19 05:47] LABS: Calcium 7.9 MG/DL (8.5-10.1); Osmolality,Calculated 273.7 MOS/KG (273-304)
[2020-07-19 06:01] LABS: Eosinophils 11 % (0-10); Hypochromasia 1+; Lymphocytes 47 % (20-55); Microcytosis 1+; Platelet Estimate Normal; Segmented Neutrophils 35 % (50-85); Total Cells Counted 100
[2020-07-19] MEDS: INSULIN GLARGINE 100 UNIT/ML SUBCUT SCH (08:10)
[2020-07-19] MEDS: ASPIRIN CHEW 81 MG TABLET PO SCH (08:11)
[2020-07-19] MEDS: TAMSULOSIN 0.4 MG CAPSULE PO SCH (08:11)
[2020-07-19] MEDS: amLODIPine 5 MG TABLET PO SCH (08:11)
[2020-07-19] MEDS: levETIRAcetam 500 MG TABLET PO SCH ×2 (08:11→20:17)
[2020-07-19] MEDS: PANTOPRAZOLE 40 MG TABLET PO SCH (08:11)
[2020-07-19] MEDS: MULTIVITAMIN LIQUID (CENTRUM) 60 ML BOTTLE NG SCH (10:04)
[2020-07-19] MEDS ORDERED: POTASSIUM CHLORIDE 20 MEQ TABLET PO ONE (16:27)
[2020-07-19] MEDS: ENOXAPARIN 40 MG/0.4 ML SYRINGE SUBCUT SCH (23:24)
[2020-07-20] MEDS: INSULIN LISPRO 100 UNIT/ML SUBCUT SCH ×3 (01:50→11:31)
[2020-07-20] MEDS: LEVOTHYROXINE 50 MCG TABLET PO SCH (05:57)
[2020-07-20 06:38] LABS: Basophils % 0.2 % (0.0-0.8); Eosinophils # 0.7 10*3/uL (0.0-0.87); Eosinophils % 16.3 % (0.00-10.9); Hematocrit 24.4 VOL% (42.0-52.0); Hemoglobin 8.6 GM/DL (14.0-18.0); Immature Granulocytes % 0.5 %; Immature Granulocytes Absolute 0.02 #; Lymphocytes # 1.4 10*3/uL (1.4-4.0); Lymphocytes % 35.6 % (21.2-54.2); Mean Corpuscular HGB Conc 35.2 GM/DL (32-36); Mean Corpuscular Volume 92.1 FL (87-102); Mean Platelet Volume 9.7 FL (9.6-12.0); Monocytes % 7.7 % (1.7-12.7); Neutrophils % 39.7 % (38.7-73.9); Platelet Count 157 T/CUMM (130-400); Red Blood Count 2.65 MC/CUMM (3.8-5.5); Red Cell Distribution Width 12.5 % (9.3-17.3); White Blood Count 4.1 T/CUMM (4-12)
[2020-07-20 06:53] LABS: Calcium 8.4 MG/DL (8.5-10.1); Osmolality,Calculated 276.5 MOS/KG (273-304)
[2020-07-20 06:57] LABS: % Iron Saturation 27.8 % (18-50); Calcium 8.3 MG/DL (8.5-10.1); Ferritin 124.5 ng/ml (26-388); Osmolality,Calculated 274.7 MOS/KG (273-304)
[2020-07-20 07:02] LABS: Folate 10.4 NG/ML (5.4-24.0); Vitamin B12 251 PG/ML (211-911)
[2020-07-20 07:16] LABS: Eosinophils 15 % (0-10); Hypochromasia 1+; Lymphocytes 35 % (20-55); Microcytosis 1+; Ovalocytes Slight; Platelet Estimate Adequate; Segmented Neutrophils 45 % (50-85); Total Cells Counted 100
[2020-07-20 07:31] LABS: Sedimentation Rate-Westergren 122 MM/HR (0-20)
[2020-07-20] MEDS: INSULIN GLARGINE 100 UNIT/ML SUBCUT SCH (07:59)
[2020-07-20] MEDS: amLODIPine 5 MG TABLET PO SCH (08:24)
[2020-07-20] MEDS: levETIRAcetam 500 MG TABLET PO SCH (08:24)
[2020-07-20] MEDS: PANTOPRAZOLE 40 MG TABLET PO SCH (08:25)
[2020-07-20] MEDS: ASPIRIN CHEW 81 MG TABLET PO SCH (08:25)
[2020-07-20] MEDS: TAMSULOSIN 0.4 MG CAPSULE PO SCH (08:25)
[2020-07-20] MEDS ORDERED: CHOLECALCIFEROL 1,000 UNIT TABLET PO SCH (09:00)
[2020-07-20] MEDS: MULTIVITAMIN LIQUID (CENTRUM) 60 ML BOTTLE NG SCH (09:28)
[2020-07-20 11:26] VITALS: BP 126/59
[2020-07-21] MEDS ORDERED: CYANOCOBALAMIN 100 MCG TABLET PO SCH (09:00)
[2020-07-21 11:23] LABS: Hemoglobin A1 (Alkaline) 97.3 % (96.5-98.5); Hemoglobin A2 (Alkaline) 2.7 % (1.5-3.5)
== END 2020-07-20 13:56 | disposition home health service (06) | DRG 56 ==
LOC: EDUNIT# → EDBD → N.ED 19:55 → N.EDINP 22:32 → SUATTDRO 22:32 → N.ICU 07-15 00:44 → N.3E 07-18 18:44
PROVIDERS: ADMIT Internal Medicine; ATTEND Hospitalist

== ENCOUNTER 2020-07-30 23:36 | Observation (INO) ==
[2020-07-31] MEDS ORDERED: PIPERACILLIN/TAZOBACTAM 3,375 MG in SODIUM CHLORIDE 0.9% 100 ML IV STA ×2 (00:10→02:45)
[2020-07-31] MEDS ORDERED: SODIUM CHLORIDE 0.9% 500 ML IV STA (00:10)
[2020-07-31 00:24] LABS: Basophils % 0.2 % (0.0-0.8); Eosinophils # 0.3 10*3/uL (0.0-0.87); Eosinophils % 2.5 % (0.00-10.9); Hematocrit 29.8 VOL% (42.0-52.0); Hemoglobin 10.3 GM/DL (14.0-18.0); Immature Granulocytes % 0.5 %; Immature Granulocytes Absolute 0.05 #; Lymphocytes # 1.1 10*3/uL (1.4-4.0); Lymphocytes % 10.9 % (21.2-54.2); Mean Corpuscular HGB Conc 34.6 GM/DL (32-36); Mean Corpuscular Volume 94.3 FL (87-102); Mean Platelet Volume 9.5 FL (9.6-12.0); Monocytes % 4.3 % (1.7-12.7); Neutrophils % 81.6 % (38.7-73.9); Platelet Count 178 T/CUMM (130-400); Red Blood Count 3.16 MC/CUMM (3.8-5.5); Red Cell Distribution Width 12.9 % (9.3-17.3)
[2020-07-31 00:41] LABS: Alanine Aminotransferase 13 U/L (16-61); Albumin 3.3 G/DL (3.4-5.0); Alkaline Phosphatase 90 U/L (45-117); Amylase 24 U/L (25-115); Aspartate Amino Transferase 25 U/L (0-37); Blood Urea Nitrogen 19 MG/DL (7-18); Calcium 8.5 MG/DL (8.5-10.1); Carbon Dioxide 25 MMOL/L (21-32); Estimated Glom Filtration Rate 65 ML/MIN; Ferritin 95.5 ng/ml (26-388); Glucose 107 MG/DL (74-106); Osmolality,Calculated 263.7 MOS/KG (273-304); Potassium 4.6 MMOL/L (3.5-5.1); Sodium 131 MMOL/L (136-145); Total Protein 7.7 G/DL (6.4-8.3); Troponin I < 0.015 NG/ML (0.00-0.045)
[2020-07-31] MEDS ORDERED: ACETAMINOPHEN 500 MG TABLET PO STA (01:12)
[2020-07-31 01:26] LABS: Bacteria,Urine Occasional /HPF (Few); Bilirubin,Urine Negative (Negative); Blood, Urine Small mg/dL (Negative); Glucose,Urine (UA) Negative (Negative); Ketones,Urine Negative (Negative); Nitrite,Urine Negative (Negative); Protein,Urine Negative; RBC,Urine 7 /HPF (0-4); Urine Appearance CLEAR (Clear); Urine Color Yellow (Yellow); Urine Urobilinogen < 2.0 EU/DL (0.2-1.0); WBC,Urine 1 /HPF (0-6)
[2020-07-31] MEDS ORDERED: levETIRAcetam 500 MG/5 ML VIAL IV ONE (01:51)
[2020-07-31] MEDS ORDERED: DEXTROSE 50% 25 GM/50 ML VIAL IV PRN (02:45)
[2020-07-31] MEDS ORDERED: ACETAMINOPHEN 325 MG TABLET PO PRN (02:45)
[2020-07-31] MEDS ORDERED: ONDANSETRON 4 MG/2 ML VIAL IV PRN (02:45)
[2020-07-31] MEDS ORDERED: DEXTROSE 50% 25 GM/50 ML SYRINGE IV PRN (02:56)
[2020-07-31 03:35] LABS: Barbiturates Screen,Urine Negative (Negative); Benzodiazepines Screen,Urine Negative (Negative); Cannabinoid Screen,Urine Negative (Negative); Opiate Screen,Urine Positive (Negative); Phencyclidine Screen,Urine Negative (Negative)
[2020-07-31] MEDS: HEPARIN 5,000 UNIT/1 ML VIAL SUBCUT SCH ×4 (05:55→23:05)
[2020-07-31] MEDS: SODIUM CHLORIDE 0.9% 1,000 ML IV SCH ×2 (05:55→16:10)
[2020-07-31 06:25] LABS: Albumin 2.8 G/DL (3.4-5.0); Bilirubin,Total 0.9 MG/DL (0.2-1.0); Calcium 8.4 MG/DL (8.5-10.1); Osmolality,Calculated 269.2 MOS/KG (273-304); Potassium 4.3 MMOL/L (3.5-5.1); Total Protein 6.6 G/DL (6.4-8.3)
[2020-07-31] MEDS: ALBUTEROL/IPRATROPIUM 3 ML NEB RESP TX SCH ×3 (07:06→19:01)
[2020-07-31] MEDS: INSULIN REGULAR 100 UNIT/ML SUBCUT SCH ×4 (08:17→23:03)
[2020-07-31] MEDS: amLODIPine 5 MG TABLET PO SCH (09:04)
[2020-07-31] MEDS: CYANOCOBALAMIN 100 MCG TABLET PO SCH (09:05)
[2020-07-31] MEDS: TAMSULOSIN 0.4 MG CAPSULE PO SCH (09:05)
[2020-07-31] MEDS: ASPIRIN CHEW 81 MG TABLET PO SCH (09:05)
[2020-07-31] MEDS: levETIRAcetam 500 MG TABLET PO SCH ×2 (09:05→20:19)
[2020-07-31] MEDS: PANTOPRAZOLE 40 MG TABLET PO SCH (09:05)
[2020-07-31] MEDS ORDERED: LEVOFLOXACIN INJ 750 MG in PREMIX 1 EACH IV SCH (13:00)
[2020-08-01] MEDS: ALBUTEROL/IPRATROPIUM 3 ML NEB RESP TX SCH ×2 (01:01→07:56)
[2020-08-01] MEDS: SODIUM CHLORIDE 0.9% 1,000 ML IV SCH ×2 (03:15→11:19)
[2020-08-01 05:20] LABS: Basophils % 0.4 % (0.0-0.8); Eosinophils # 0.3 10*3/uL (0.0-0.87); Eosinophils % 5.3 % (0.00-10.9); Hematocrit 24.4 VOL% (42.0-52.0); Hemoglobin 8.3 GM/DL (14.0-18.0); Immature Granulocytes % 0.4 %; Immature Granulocytes Absolute 0.02 #; Lymphocytes # 1.1 10*3/uL (1.4-4.0); Lymphocytes % 19.2 % (21.2-54.2); Mean Corpuscular Volume 95.3 FL (87-102); Monocytes % 4.4 % (1.7-12.7); Neutrophils % 70.3 % (38.7-73.9); Platelet Count 132 T/CUMM (130-400); Red Blood Count 2.56 MC/CUMM (3.8-5.5); White Blood Count 5.6 T/CUMM (4-12)
[2020-08-01 05:38] LABS: Calcium 8.4 MG/DL (8.5-10.1); Osmolality,Calculated 278.5 MOS/KG (273-304); Potassium 3.8 MMOL/L (3.5-5.1)
[2020-08-01] MEDS: HEPARIN 5,000 UNIT/1 ML VIAL SUBCUT SCH (06:21)
[2020-08-01 08:11] VITALS: BP 140/81
[2020-08-01] MEDS: INSULIN REGULAR 100 UNIT/ML SUBCUT SCH ×2 (08:46→11:22)
[2020-08-01] MEDS: TAMSULOSIN 0.4 MG CAPSULE PO SCH (08:49)
[2020-08-01] MEDS: ASPIRIN CHEW 81 MG TABLET PO SCH (08:49)
[2020-08-01] MEDS: CYANOCOBALAMIN 100 MCG TABLET PO SCH (08:49)
[2020-08-01] MEDS: amLODIPine 5 MG TABLET PO SCH (08:50)
[2020-08-01] MEDS: levETIRAcetam 500 MG TABLET PO SCH (08:50)
[2020-08-01] MEDS: PANTOPRAZOLE 40 MG TABLET PO SCH (08:50)
== END 2020-08-01 12:27 | disposition home or self-care (01) ==
LOC: N.EDINP 23:36 → N.ED 23:36 → N.EDINP 07-31 04:10 → N.TELES 07-31 05:17
PROVIDERS: ADMIT Internal Medicine; ATTEND Internal Medicine

== ENCOUNTER 2020-10-09 17:21 | Inpatient (IN) ==
[2020-10-09] MEDS ORDERED: ACETAMINOPHEN 500 MG TABLET PO STA (18:00)
[2020-10-09 18:17] LABS: Basophils % 0.1 % (0.0-0.8); Eosinophils % 0.4 % (0.00-10.9); Hematocrit 32.8 VOL% (42.0-52.0); Hemoglobin 10.7 GM/DL (14.0-18.0); Immature Granulocytes % 0.4 %; Immature Granulocytes Absolute 0.03 #; Lymphocytes # 0.8 10*3/uL (1.4-4.0); Lymphocytes % 11.8 % (21.2-54.2); Mean Corpuscular HGB Conc 32.6 GM/DL (32-36); Mean Corpuscular Volume 96.8 FL (87-102); Monocytes % 4.9 % (1.7-12.7); Neutrophils % 82.4 % (38.7-73.9); Platelet Count 133 T/CUMM (130-400); Red Blood Count 3.39 MC/CUMM (3.8-5.5); Red Cell Distribution Width 13.2 % (9.3-17.3); White Blood Count 6.9 T/CUMM (4-12)
[2020-10-09] MEDS ORDERED: PIPERACILLIN/TAZOBACTAM 3,375 MG in SODIUM CHLORIDE 0.9% 100 ML IV STA (18:37)
[2020-10-09] MEDS ORDERED: SODIUM CHLORIDE 0.9% 500 ML IV STA (18:37)
[2020-10-09 18:45] LABS: Albumin 3.4 G/DL (3.4-5.0); Bilirubin,Total 0.8 MG/DL (0.2-1.0); Calcium 8.4 MG/DL (8.5-10.1); Osmolality,Calculated 267.5 MOS/KG (273-304); Potassium 4.1 MMOL/L (3.5-5.1); Total Protein 8.2 G/DL (6.4-8.3)
[2020-10-09 18:57] LABS: INR 1.3; PT Patient Result 13.5 SECS (9.8-11.9)
[2020-10-09] MEDS ORDERED: MAGNESIUM SULF RIDER 2 GM in PREMIX 1 EACH IV STA (19:15)
[2020-10-09 19:17] LABS: Ferritin 107.6 ng/ml (26-388)
[2020-10-09] MEDS ORDERED: IBUPROFEN 100 MG/5 ML UDCUP PO STA (19:17)
[2020-10-09 19:23] LABS: Amorphous Crystals,Urine Occasional /HPF (Few); Bilirubin,Urine Negative (Negative); Blood, Urine Moderate mg/dL (Negative); Glucose,Urine (UA) Negative (Negative); Ketones,Urine Negative (Negative); Mucus,Urine Occasional /LPF (Occasional); Nitrite,Urine Negative (Negative); Protein,Urine Negative; RBC,Urine 7 /HPF (0-4); Urine Appearance CLEAR (Clear); Urine Color Yellow (Yellow); Urine Specific Gravity 1.013 (1.001-1.035); Urine Urobilinogen < 2.0 EU/DL (0.2-1.0); WBC,Urine 1 /HPF (0-6)
[2020-10-09 19:26] LABS: Barbiturates Screen,Urine Negative (Negative); Benzodiazepines Screen,Urine Negative (Negative); Cannabinoid Screen,Urine Negative (Negative); Opiate Screen,Urine Negative (Negative); Phencyclidine Screen,Urine Negative (Negative)
[2020-10-09 19:27] LABS: Prolactin 9.8 NG/ML
[2020-10-09] MEDS ORDERED: levETIRAcetam 500 MG/5 ML VIAL IV ONE (20:02)
[2020-10-09] MEDS ORDERED: ONDANSETRON 4 MG/2 ML VIAL IV PRN (20:32)
[2020-10-09] MEDS ORDERED: ALBUTEROL 2.5 MG/3 ML NEB RESP TX PRN (20:32)
[2020-10-09] MEDS ORDERED: ACETAMINOPHEN 325 MG TABLET PO PRN (20:32)
[2020-10-09] MEDS ORDERED: GLUCAGON 1 MG VIAL IM PRN (21:04)
[2020-10-09] MEDS ORDERED: DEXTROSE 50% 25 GM/50 ML VIAL IV PRN (21:04)
[2020-10-09] MEDS: ENOXAPARIN 40 MG/0.4 ML SYRINGE SUBCUT SCH (21:20)
[2020-10-09] MEDS: SODIUM CHLORIDE 0.9% 1,000 ML IV SCH (21:20)
[2020-10-09] MEDS ORDERED: DOXYCYCLINE HYCLATE 100 MG VIAL ONE (23:08)
[2020-10-09] MEDS: DOXYCYCLINE HYCLATE INJ 100 MG in SODIUM CHLORIDE 0.9% 100 ML IV SCH (23:14)
[2020-10-10] MEDS: PIPERACILLIN/TAZOBACTAM 3,375 MG in SODIUM CHLORIDE 0.9% 100 ML IV SCH ×3 (05:08→21:12)
[2020-10-10 05:33] LABS: Basophils % 0.1 % (0.0-0.8); Eosinophils % 0.3 % (0.00-10.9); Hematocrit 27.4 VOL% (42.0-52.0); Hemoglobin 9.4 GM/DL (14.0-18.0); Immature Granulocytes % 2.2 %; Immature Granulocytes Absolute 0.15 #; Mean Corpuscular HGB Conc 34.3 GM/DL (32-36); Mean Corpuscular Volume 93.2 FL (87-102); Mean Platelet Volume 10.4 FL (9.6-12.0); Monocytes % 7.5 % (1.7-12.7); Neutrophils % 74.9 % (38.7-73.9); Platelet Count 92 T/CUMM (130-400); Red Blood Count 2.94 MC/CUMM (3.8-5.5); Red Cell Distribution Width 13.3 % (9.3-17.3); White Blood Count 6.9 T/CUMM (4-12)
[2020-10-10 05:50] LABS: Calcium 8.1 MG/DL (8.5-10.1); Osmolality,Calculated 271.2 MOS/KG (273-304); Potassium 4.1 MMOL/L (3.5-5.1); Thyroid Stimulating Hormone 0.291 uIU/ml (0.358-3.74)
[2020-10-10 05:54] LABS: Band Neutrophils 3 % (0-10); Eosinophils 1 % (0-10); Hypochromasia 1+; Lymphocytes 20 % (20-55); Microcytosis 1+; Platelet Estimate Decreased; Segmented Neutrophils 74 % (50-85); Total Cells Counted 100
[2020-10-10 05:55] LABS: Ovalocytes Slight
[2020-10-10] MEDS: INSULIN LISPRO 100 UNIT/ML SUBCUT SCH ×4 (09:25→22:33)
[2020-10-10] MEDS: SODIUM CHLORIDE 0.9% 1,000 ML IV SCH ×2 (09:25→21:17)
[2020-10-10] MEDS: LEVOTHYROXINE 50 MCG TABLET PO SCH (09:26)
[2020-10-10] MEDS: levETIRAcetam 500 MG TABLET PO SCH ×2 (09:26→21:11)
[2020-10-10] MEDS: TAMSULOSIN 0.4 MG CAPSULE PO SCH (09:26)
[2020-10-10] MEDS: PANTOPRAZOLE 40 MG TABLET PO SCH (09:26)
[2020-10-10] MEDS: DOXYCYCLINE HYCLATE INJ 100 MG in SODIUM CHLORIDE 0.9% 100 ML IV SCH ×2 (11:58→23:56)
[2020-10-10] MEDS: ENOXAPARIN 40 MG/0.4 ML SYRINGE SUBCUT SCH (21:12)
[2020-10-11] MEDS: PIPERACILLIN/TAZOBACTAM 3,375 MG in SODIUM CHLORIDE 0.9% 100 ML IV SCH ×3 (04:56→21:28)
[2020-10-11 05:40] LABS: Basophils % 0.2 % (0.0-0.8); Eosinophils # 0.1 10*3/uL (0.0-0.87); Eosinophils % 2.5 % (0.00-10.9); Hematocrit 27.4 VOL% (42.0-52.0); Hemoglobin 9.2 GM/DL (14.0-18.0); Immature Granulocytes % 0.8 %; Immature Granulocytes Absolute 0.04 #; Lymphocytes # 0.6 10*3/uL (1.4-4.0); Lymphocytes % 12.5 % (21.2-54.2); Mean Corpuscular HGB Conc 33.6 GM/DL (32-36); Mean Corpuscular Volume 94.8 FL (87-102); Mean Platelet Volume 10.5 FL (9.6-12.0); Monocytes % 7.6 % (1.7-12.7); Neutrophils % 76.4 % (38.7-73.9); Platelet Count 114 T/CUMM (130-400); Red Blood Count 2.89 MC/CUMM (3.8-5.5); Red Cell Distribution Width 13.3 % (9.3-17.3); White Blood Count 5.1 T/CUMM (4-12)
[2020-10-11 05:57] LABS: Calcium 8.3 MG/DL (8.5-10.1); Osmolality,Calculated 275.8 MOS/KG (273-304); Potassium 3.5 MMOL/L (3.5-5.1)
[2020-10-11] MEDS: SODIUM CHLORIDE 0.9% 1,000 ML IV SCH ×2 (06:18→18:40)
[2020-10-11] MEDS: INSULIN LISPRO 100 UNIT/ML SUBCUT SCH ×4 (09:33→21:29)
[2020-10-11] MEDS: PANTOPRAZOLE 40 MG TABLET PO SCH (09:35)
[2020-10-11] MEDS: TAMSULOSIN 0.4 MG CAPSULE PO SCH (09:35)
[2020-10-11] MEDS: LEVOTHYROXINE 50 MCG TABLET PO SCH (09:35)
[2020-10-11] MEDS: levETIRAcetam 500 MG TABLET PO SCH ×2 (09:35→21:29)
[2020-10-11] MEDS: DOXYCYCLINE HYCLATE INJ 100 MG in SODIUM CHLORIDE 0.9% 100 ML IV SCH (12:52)
[2020-10-11] MEDS: ENOXAPARIN 40 MG/0.4 ML SYRINGE SUBCUT SCH (21:28)
[2020-10-12] MEDS: DOXYCYCLINE HYCLATE INJ 100 MG in SODIUM CHLORIDE 0.9% 100 ML IV SCH ×2 (02:08→10:53)
[2020-10-12] MEDS: PIPERACILLIN/TAZOBACTAM 3,375 MG in SODIUM CHLORIDE 0.9% 100 ML IV SCH ×3 (03:55→22:22)
[2020-10-12 05:50] LABS: Basophils % 0.2 % (0.0-0.8); Eosinophils # 0.2 10*3/uL (0.0-0.87); Eosinophils % 3.5 % (0.00-10.9); Hematocrit 24.6 VOL% (42.0-52.0); Hemoglobin 8.5 GM/DL (14.0-18.0); Immature Granulocytes % 0.5 %; Immature Granulocytes Absolute 0.02 #; Lymphocytes # 1.4 10*3/uL (1.4-4.0); Mean Corpuscular HGB Conc 34.6 GM/DL (32-36); Mean Corpuscular Volume 92.8 FL (87-102); Mean Platelet Volume 10.5 FL (9.6-12.0); Neutrophils % 54.8 % (38.7-73.9); Platelet Count 118 T/CUMM (130-400); Red Blood Count 2.65 MC/CUMM (3.8-5.5); Red Cell Distribution Width 13.5 % (9.3-17.3); White Blood Count 4.3 T/CUMM (4-12)
[2020-10-12] MEDS: SODIUM CHLORIDE 0.9% 1,000 ML IV SCH (06:04)
[2020-10-12 06:16] LABS: Calcium 8.1 MG/DL (8.5-10.1); Osmolality,Calculated 280.4 MOS/KG (273-304); Potassium 3.4 MMOL/L (3.5-5.1)
[2020-10-12] MEDS: INSULIN LISPRO 100 UNIT/ML SUBCUT SCH ×4 (08:31→22:22)
[2020-10-12] MEDS: TAMSULOSIN 0.4 MG CAPSULE PO SCH (09:05)
[2020-10-12] MEDS: levETIRAcetam 500 MG TABLET PO SCH ×2 (09:05→22:22)
[2020-10-12] MEDS: PANTOPRAZOLE 40 MG TABLET PO SCH (09:06)
[2020-10-12] MEDS: LEVOTHYROXINE 50 MCG TABLET PO SCH (09:06)
[2020-10-12] MEDS: POTASSIUM CHLORIDE 20 MEQ TABLET PO PRN ×3 (09:15→17:36)
[2020-10-12] MEDS: ENOXAPARIN 40 MG/0.4 ML SYRINGE SUBCUT SCH (22:22)
[2020-10-13] MEDS: DOXYCYCLINE HYCLATE INJ 100 MG in SODIUM CHLORIDE 0.9% 100 ML IV SCH ×2 (02:33→12:05)
[2020-10-13 03:31] LABS: Basophils % 0.2 % (0.0-0.8); Eosinophils # 0.3 10*3/uL (0.0-0.87); Eosinophils % 7.1 % (0.00-10.9); Hematocrit 26.1 VOL% (42.0-52.0); Immature Granulocytes % 0.5 %; Immature Granulocytes Absolute 0.02 #; Lymphocytes # 1.4 10*3/uL (1.4-4.0); Lymphocytes % 35.2 % (21.2-54.2); Mean Corpuscular HGB Conc 34.5 GM/DL (32-36); Mean Corpuscular Volume 91.6 FL (87-102); Monocytes % 8.6 % (1.7-12.7); Neutrophils % 48.4 % (38.7-73.9); Platelet Count 128 T/CUMM (130-400); Red Blood Count 2.85 MC/CUMM (3.8-5.5); Red Cell Distribution Width 13.5 % (9.3-17.3); White Blood Count 4.1 T/CUMM (4-12)
[2020-10-13 03:48] LABS: Calcium 8.5 MG/DL (8.5-10.1); Osmolality,Calculated 279.4 MOS/KG (273-304); Potassium 3.6 MMOL/L (3.5-5.1)
[2020-10-13] MEDS: PIPERACILLIN/TAZOBACTAM 3,375 MG in SODIUM CHLORIDE 0.9% 100 ML IV SCH (07:39)
[2020-10-13] MEDS: INSULIN LISPRO 100 UNIT/ML SUBCUT SCH ×2 (07:58→11:49)
[2020-10-13] MEDS ORDERED: amLODIPine 5 MG TABLET PO SCH (09:30)
[2020-10-13] MEDS: TAMSULOSIN 0.4 MG CAPSULE PO SCH (10:05)
[2020-10-13] MEDS: levETIRAcetam 500 MG TABLET PO SCH (10:06)
[2020-10-13] MEDS: PANTOPRAZOLE 40 MG TABLET PO SCH (10:07)
[2020-10-13] MEDS: LEVOTHYROXINE 50 MCG TABLET PO SCH (10:07)
[2020-10-13 13:32] VITALS: BP 139/74
== END 2020-10-13 15:50 | disposition home health service (06) | DRG 194 ==
LOC: EDBD → EDUNIT# → N.ED 17:21 → N.EDINP 20:32 → EDBD 20:32 → N.TELES 10-10 00:03
PROVIDERS: ADMIT Internal Medicine Geriatric Medicine; ATTEND Internal Medicine Geriatric Medicine

== ENCOUNTER 2021-04-01 19:38 | Inpatient (IN) ==
[2021-04-01] MEDS ORDERED: SODIUM CHLORIDE 0.9% 1,000 ML IV STA (19:58)
[2021-04-01] MEDS ORDERED: VANCOMYCIN INJ 2,000 MG in SODIUM CHLORIDE 0.9% 500 ML IV STA (20:02)
[2021-04-01] MEDS ORDERED: CEFEPIME 2,000 MG in SODIUM CHLORIDE 0.9% 100 ML IV STA (20:03)
[2021-04-01 20:19] LABS: ABG Base Excess -1.7 MMOL/L (-2.5-2.5); ABG HCO3 22.9 MMOL/L (20-26); ABG Oxygen Saturation 93.7 % (95-100); ABG PCO2 33.1 MM HG (35-48); ABG PH 7.431 (7.35-7.45); ABG PO2 66.7 MM HG (80-95); ABG TCO2 20.1 MMOL/L (23-27)
[2021-04-01 20:28] LABS: Basophils % 0.1 % (0.0-0.8); Hematocrit 28.9 VOL% (42.0-52.0); Hemoglobin 9.6 GM/DL (14.0-18.0); Immature Granulocytes % 0.9 %; Immature Granulocytes Absolute 0.13 #; Lymphocytes # 1.3 10*3/uL (1.4-4.0); Mean Corpuscular HGB Conc 33.2 GM/DL (32-36); Mean Corpuscular Volume 95.4 FL (87-102); Mean Platelet Volume 10.4 FL (9.6-12.0); Monocytes % 4.7 % (1.7-12.7); Neutrophils % 85.3 % (38.7-73.9); Platelet Count 149 T/CUMM (130-400); Red Blood Count 3.03 MC/CUMM (3.8-5.5); Red Cell Distribution Width 13.6 % (9.3-17.3); White Blood Count 14.1 T/CUMM (4-12)
[2021-04-01 20:37] LABS: Bilirubin,Urine Negative (Negative); Blood, Urine Small mg/dL (Negative); Glucose,Urine (UA) Negative (Negative); Ketones,Urine Negative (Negative); Mucus,Urine Occasional /LPF (Occasional); Nitrite,Urine Negative (Negative); Protein,Urine Negative; RBC,Urine 3 /HPF (0-4); Squamous Epithelial Cell,Urine Occasional /HPF (0-10); Urine Appearance CLEAR (Clear); Urine Color Yellow (Yellow); Urine Specific Gravity 1.016 (1.001-1.035); Urine Urobilinogen < 2.0 EU/DL (0.2-1.0)
[2021-04-01 20:40] LABS: INR 1.2; PT Patient Result 13.5 SECS (10.5-12.0); Partial Thromboplastin Time 33.8 SECS (23.9-33.8)
[2021-04-01 20:50] LABS: Band Neutrophils 4 % (0-10); Lymphocytes 9 % (20-55); Segmented Neutrophils 84 % (50-85); Total Cells Counted 100
[2021-04-01 20:51] LABS: Anisocytosis 1+; Hypochromasia Slight; Platelet Estimate Adequate
[2021-04-01 21:08] LABS: Albumin 2.9 G/DL (3.4-5.0); Bilirubin,Total 1.3 MG/DL (0.20-1.00); Calcium 8.6 MG/DL (8.5-10.1); Osmolality,Calculated 277.5 MOS/KG (273-304); Potassium 4.8 MMOL/L (3.5-5.1); Total Protein 7.4 G/DL (6.4-8.2)
[2021-04-01] MEDS ORDERED: ACETAMINOPHEN 500 MG TABLET PO STA (23:49)
[2021-04-02] MEDS ORDERED: CEFEPIME 2,000 MG VIAL ONE (00:23)
[2021-04-02] MEDS ORDERED: SODIUM CHLORIDE 0.9% 100 ML IV ONE (00:23)
[2021-04-02] MEDS ORDERED: hydrALAZINE 20 MG/1 ML VIAL IV PRN (02:44)
[2021-04-02] MEDS ORDERED: DOCUSATE SODIUM 100 MG CAPSULE PO PRN (02:44)
[2021-04-02] MEDS ORDERED: ONDANSETRON 4 MG/2 ML VIAL IV PRN (02:44)
[2021-04-02] MEDS ORDERED: ALBUTEROL/IPRATROPIUM 3 ML NEB RESP TX PRN (02:44)
[2021-04-02] MEDS: SODIUM CHLORIDE 0.9% 1,000 ML IV SCH ×2 (03:20→15:12)
[2021-04-02] MEDS: AZITHROMYCIN INJ 500 MG in SODIUM CHLORIDE 0.9% 250 ML IV SCH (04:15)
[2021-04-02 06:02] LABS: Basophils % 0.3 % (0.0-0.8); Eosinophils % 0.1 % (0.00-10.9); Hematocrit 23.6 VOL% (42.0-52.0); Immature Granulocytes Absolute 0.22 #; Lymphocytes # 1.3 10*3/uL (1.4-4.0); Lymphocytes % 11.6 % (21.2-54.2); Mean Corpuscular HGB Conc 33.9 GM/DL (32-36); Mean Corpuscular Volume 94.8 FL (87-102); Mean Platelet Volume 10.3 FL (9.6-12.0); Monocytes % 4.2 % (1.7-12.7); Neutrophils % 81.8 % (38.7-73.9); Platelet Count 110 T/CUMM (130-400); Red Blood Count 2.49 MC/CUMM (3.8-5.5); Red Cell Distribution Width 13.7 % (9.3-17.3); White Blood Count 11.2 T/CUMM (4-12)
[2021-04-02] MEDS: LEVOTHYROXINE 50 MCG TABLET PO SCH (06:17)
[2021-04-02 06:30] LABS: Band Neutrophils 2 % (0-10); Hypochromasia Slight; Lymphocytes 12 % (20-55); Platelet Estimate Normal; Segmented Neutrophils 82 % (50-85); Total Cells Counted 100
[2021-04-02 06:36] LABS: Calcium 8.1 MG/DL (8.5-10.1); Potassium 4.1 MMOL/L (3.5-5.1)
[2021-04-02] MEDS: TAMSULOSIN 0.4 MG CAPSULE PO SCH (08:50)
[2021-04-02] MEDS: levETIRAcetam 500 MG TABLET PO SCH ×2 (08:50→20:24)
[2021-04-02] MEDS: cefTRIAXone 1,000 MG in SODIUM CHLORIDE 0.9% 100 ML IV SCH (08:50)
[2021-04-02 09:26] LABS: % Iron Saturation 7.1 % (18-50); Ferritin 111.7 ng/ml (26-388)
[2021-04-02 09:37] LABS: Folate 23.87 NG/ML (5.38-24.0)
[2021-04-02] MEDS: amLODIPine 5 MG TABLET PO SCH (09:50)
[2021-04-02] MEDS: FERRIC GLUCONATE COMPLEX 125 MG in SODIUM CHLORIDE 0.9% 100 ML IV SCH (15:12)
[2021-04-02] MEDS: ACETAMINOPHEN 325 MG TABLET PO PRN (20:24)
[2021-04-03] MEDS: AZITHROMYCIN INJ 500 MG in SODIUM CHLORIDE 0.9% 250 ML IV SCH (02:07)
[2021-04-03] MEDS: SODIUM CHLORIDE 0.9% 1,000 ML IV SCH ×2 (02:08→19:54)
[2021-04-03] MEDS: LEVOTHYROXINE 50 MCG TABLET PO SCH ×2 (04:59→05:32)
[2021-04-03 05:43] LABS: Basophils % 0.2 % (0.0-0.8); Eosinophils # 0.1 10*3/uL (0.0-0.87); Eosinophils % 1.2 % (0.00-10.9); Hematocrit 27.8 VOL% (42.0-52.0); Hemoglobin 8.9 GM/DL (14.0-18.0); Immature Granulocytes % 0.3 %; Immature Granulocytes Absolute 0.02 #; Lymphocytes # 0.7 10*3/uL (1.4-4.0); Lymphocytes % 10.9 % (21.2-54.2); Mean Corpuscular Volume 98.6 FL (87-102); Mean Platelet Volume 10.8 FL (9.6-12.0); Monocytes % 5.3 % (1.7-12.7); Neutrophils % 82.1 % (38.7-73.9); Platelet Count 129 T/CUMM (130-400); Red Blood Count 2.82 MC/CUMM (3.8-5.5); Red Cell Distribution Width 13.8 % (9.3-17.3); White Blood Count 6.4 T/CUMM (4-12)
[2021-04-03 06:07] LABS: Alanine Aminotransferase 23 U/L (16-61); Albumin 2.5 G/DL (3.4-5.0); Alkaline Phosphatase 75 U/L (45-117); Aspartate Amino Transferase 33 U/L (0-37); Bilirubin,Total < 0.39 MG/DL (0.20-1.00); Blood Urea Nitrogen 30 MG/DL (7-18); Calcium 8.8 MG/DL (8.5-10.1); Carbon Dioxide 23 MMOL/L (21-32); Estimated Glom Filtration Rate 90 ML/MIN; Glucose 108 MG/DL (74-106); Sodium 136 MMOL/L (136-145)
[2021-04-03] MEDS: FERRIC GLUCONATE COMPLEX 125 MG in SODIUM CHLORIDE 0.9% 100 ML IV SCH (08:54)
[2021-04-03] MEDS: amLODIPine 5 MG TABLET PO SCH (10:13)
[2021-04-03] MEDS: TAMSULOSIN 0.4 MG CAPSULE PO SCH (10:13)
[2021-04-03] MEDS: levETIRAcetam 500 MG TABLET PO SCH ×2 (10:14→20:49)
[2021-04-03] MEDS: cefTRIAXone 1,000 MG in SODIUM CHLORIDE 0.9% 100 ML IV SCH (10:18)
[2021-04-03] MEDS: ACETAMINOPHEN 325 MG TABLET PO PRN (17:31)
[2021-04-04] MEDS: AZITHROMYCIN INJ 500 MG in SODIUM CHLORIDE 0.9% 250 ML IV SCH (02:40)
[2021-04-04 05:23] LABS: Osmolality,Calculated 282.5 MOS/KG (273-304); Potassium 4.4 MMOL/L (3.5-5.1)
[2021-04-04] MEDS: LEVOTHYROXINE 50 MCG TABLET PO SCH (06:08)
[2021-04-04] MEDS: amLODIPine 5 MG TABLET PO SCH (08:29)
[2021-04-04] MEDS: cefTRIAXone 1,000 MG in SODIUM CHLORIDE 0.9% 100 ML IV SCH (08:29)
[2021-04-04] MEDS: TAMSULOSIN 0.4 MG CAPSULE PO SCH (08:29)
[2021-04-04] MEDS: levETIRAcetam 500 MG TABLET PO SCH (08:29)
[2021-04-04] MEDS: FERRIC GLUCONATE COMPLEX 125 MG in SODIUM CHLORIDE 0.9% 100 ML IV SCH (09:27)
[2021-04-04 11:42] VITALS: BP 156/83
== END 2021-04-04 13:30 | disposition home health service (06) | DRG 871 ==
LOC: EDBD → EDUNIT# → N.ED 19:38 → N.EDINP 04-02 02:11 → N.5E 04-02 03:36
PROVIDERS: ADMIT Internal Medicine; ATTEND Internal Medicine